=== PATIENT | male | born 1985 | race Caucasian/White ===

== ENCOUNTER 2021-08-24 16:24 | Emergency (ER) | payer OTHER, SELFPAY ==
[2021-08-24 16:26] VITALS: BP 146/96; PULSE 89; RESP 15; TEMP 36.2; O2SAT 99; BMI 38.0
[2021-08-24 16:43] VITALS: BP 151/105; PULSE 86; RESP 21; O2SAT 96
--- NOTE | 2021-08-24 17:12 | RAD_ITS ---
INDICATION: chest pain EXAMINATION/TECHNIQUE: X-RAY - XR Chest 2 Views COMPARISON: None. FINDINGS: The lungs are clear. The cardiomediastinal silhouette is unremarkable. No pleural effusion or pneumothorax. No acute osseous abnormalities. RAD/Chest PA and Lateral IMPRESSION: No acute radiographic abnormalities. Electronically Signed: Arcenio Carmichael MD at 18:23 EDT ,
[2021-08-24 17:24] LABS: Absolute Lymphocyte Count 1.31 X10^3/uL (0.83-4.51); Absolute Neutrophil Count 2.7 X10^3/uL (2.0-7.7); Basophil# 0.04 X10^3/uL; Basophil% 0.8 % (0-1); Eosinophil# 0.07 X10^3/uL; Eosinophils% 1.4 % (0-5); Hematocrit 43.1 % (40-54); Hemoglobin 15.1 g/dL (13.0-16.5); Lymphocyte # 1.31 X10^3/ul (0.83-4.51); Lymphocyte % 26.6 % (19-41); Mean Corpuscular Hgb 28.7 pg (27.0-32.0); Mean Corpuscular Volume 81.8 fL (80-94); Mean Platelet Vol. 10.2 fl (6.2-12.0); Monocyte# 0.75 X10^3/uL; Monocyte% 15.2 % (0-10); NRBC Flagged by Analyzer 0 % (0-5); Neutrophil # 2.67 X10^3/uL (2.7-7.7); Neutrophil % 54.2 % (47-70); Platelet Count 187 K/mm3 (150-450); RBC Distribution Width CV 12.4 % (11.6-14.6); RBC Distribution Width SD 37.1 fl (35.1-43.9); Red Blood Count 5.27 M/mm3 (4.6-6.2); White Blood Count 4.9 K/mm3 (4.4-11.0)
--- NOTE | 2021-08-24 17:25 | CM.ED ---
SW Note Referral Source: Case Find Referral Reason: NO PCP SW met with patient. He confirmed he has no PCP. SW provided him with [facility] Healthcare Provider list. SW remains available if needs arise. Plan: [facility] [address]
--- NOTE | 2021-08-24 17:29 | EKG12_ITS ---
Test Reason : EDEMA Blood Pressure : / mmHG Vent. Rate : 076 BPM Atrial Rate : 076 BPM P-R Int : 154 ms QRS Dur : 098 ms QT Int : 362 ms P-R-T Axes : 040 026 006 degrees QTc Int : 407 ms Normal sinus rhythm Normal ECG Confirmed by GRACIE STOVER, BASILIA ([id number]), make up editor KIRSTY ALEXANDRE ([id number]) on 08/30/2021 12:41:23 PM Referred By: ANGELLA Confirmed By:BASILIA BOWMAN MD
--- NOTE | 2021-08-24 17:33 | US_ITS ---
INDICATION: undefined -- SWELLING EXAMINATION: US Venous Duplex LE Bilat Complete TECHNIQUE: Street scale, pulse wave, and color flow Doppler imaging was performed of the lower extremity venous system. The bilateral greater saphenous, common femoral, femoral, and popliteal veins were interrogated. COMPARISON: None. FINDINGS: There is normal compression, augmentation, and signal throughout the visualized deep lower extremity veins. No mass. 2.6 cm Arrington''s cyst on the left. US/Venous Duplex Imag/Markus Extrem IMPRESSION: No sonographic evidence of deep venous thrombosis. 2.6 cm Arrington''s cyst on the left. Electronically Signed: Arcenio Carmichael MD at 18:39 EDT ,
[2021-08-24 17:54] LABS: Anion Gap 4 (5-15); BUN 13 mg/dL (7-18); BUN/Creat Ratio 12.4 RATIO (10-20); Calcium,Total 8.2 mg/dL (8.5-10.1); Chloride 105 mmol/L (98-107); Creatinine, Serum 1.05 mg/dL (0.70-1.30); EST Glomerular Filtration Rate 85 mL/min (>60); Est Glom Filt Rate - Afr Amer 103 mL/min (>60); Glucose 91 mg/dL (74-106); Potassium 4.1 mmol/L (3.5-5.1); Sodium Level 139 mmol/L (136-145); Thyroid Stim Hormone (TSH) 3.06 uIU/mL (0.358-3.74); Troponin-I HS 10 pg/mL (3.0-78.0)
[2021-08-24 18:09] LABS: BNP,B-Type NATRIURETIC PEPTIDE < 2.0 pg/mL (0-100)
[2021-08-24 18:36] VITALS: BP 156/100; PULSE 84; RESP 21; O2SAT 96
--- NOTE | 2021-08-24 18:36 | EDS_ITS ---
HPI <UGO Tran - Last Filed: 08/24/21 18:44> History of Present Illness Chief Complaint: Edema Narrative Narrative: 35-year-old male with no significant medical history presents to the emergency department with complaints of 4 days of generalized lower leg swelling, intermittent chest pain, increased shortness of breath. Patient has never seen a PCP, patient had his first appointment today however because he was 10 minutes late, he had to reschedule. He was going to bring up that his legs have been swelling, he is concerned that he has a blood clot, so the office told him to come to the emergency department. Patient denies any history of blood clot, recent travel. Patient recently did have COVID-19 in May 2021. Patient also states of intermittent chest pressure as well as some increase shortness of breath on exertion. Patient denies any fevers or chills PFSH <UGO Tran - Last Filed: 08/24/21 18:44> PFS Medical History no medical history Home Medications NK 08/24/21 [History Last Taken Unknown] Allergy/AdvReac Type Severity Reaction Status Date / Time No Known Allergies Allergy Verified 08/24/21 16:28 Surgical History no surgical history Social History Smoking Status: Never smoker ROS <UGO Tran - Last Filed: 08/24/21 18:44> ROS ED ROS Narrative Constitutional: Negative for fever, chills, weight loss, weakness Eyes: Negative for vision loss, vision change, double vision ENT: Negative for any sore throat, ear pain, congestion Cardiovascular: Negative for any chest pain, tightness, racing heartbeat. Positive palpitations Respiratory: Negative for any cough, sputum production, hemoptysis, shortness of breath on exertion, orthopnea. Positive for intermittent shortness of breath Gastrointestinal: Negative for any abdominal pain, nausea, vomiting, diarrhea, constipation, blood in stool, blood in vomit : Negative for any urinary frequency, incontinence, dysuria, retention, blood in urine Muscle skeletal: Negative for any muscle joint pain, stiffness, myalgias, arthralgias, neck pain, back pain. Positive for bilateral lower leg swelling Neurological: Negative for any headache, dizziness, syncope, numbness or tingling Skin: Negative for any rashes, lumps, itching, abrasions, lacerations Psychiatric: Negative for any depression, anxiety, stress, suicidal ideation, homicidal ideation Hematologic: Negative for any easy bruising, excessive bruising, easy bleeding Allergies: Negative for any eczema, hives, rash EXAM <UGO Tran - Last Filed: 08/24/21 18:44> Physical Exam Narrative Exam Narrative: Vital signs reviewed. HEET: Head normocephalic atraumatic, TMs clear bilaterally. Posterior pharynx is clear, moist mucous membranes. Nares clear bilaterally. Neck: Supple with no lymphadenopathy or tenderness. No signs of meningismus, negative jolt sign. Cardiac: Regular rate and rhythm no murmurs gallops or rubs, equal peripheral pulses bilaterally. Respiratory: Lungs clear to auscultation bilaterally. No chest tenderness. Abdomen: Soft, nontender, nondistended. No abdominal bruit or pulsatile masses. No hepatosplenomegaly Extremities: Patient does have some edema to his lower extremities specifically around his ankles. This is not pitting edema. Patient has +2 pedal pulse. Negative for any neurological focal deficit. Negative for any discoloration.. Active full range of motion of all extremities. Neuro: Cranial nerves II through XII intact, no focal neurological deficits. Skin: Clean dry and intact with no rash, purpura, petechiae, vesicles or pustules. Backslash flank: No CVA tenderness, no midline spinal tenderness, no deformity. Psych: Normal mood and affect. No SI, HI or acute psychosis. Const Vital Signs: 08/24/21 16:26 08/24/21 16:43 Temperature 97.1 F L Temperature Source Temporal Pulse Rate 89 86 Respiratory Rate 15 21 H Respiratory Effort Normal Non-Labored Respiratory Pattern Normal Blood Pressure 146/96 H 151/105 H Blood Pressure Mean 112 120 Pulse Ox 99 96 Oxygen Delivery Method Room Air Room Air Positive well nourished and well developed General Appearance ED: well developed <Dr. Nanda Talbot DO - Last Filed: 09/04/21 07:47> Physical Exam Const Vital Signs: 08/24/21 16:26 08/24/21 16:43 Temperature 97.1 F L Temperature Source Temporal Pulse Rate 89 86 Respiratory Rate 15 21 H Respiratory Effort Normal Non-Labored Respiratory Pattern Normal Blood Pressure 146/96 H 151/105 H Blood Pressure Mean 112 120 Pulse Ox 99 96 Oxygen Delivery Method Room Air Room Air [facility] <Robert Arcos FISH ICER-C - Last Filed: 08/24/21 18:44> [facility] Narrative Medical decision making narrative: Patient appears well, patient appears nontoxic, vital signs are stable. Patient presents to the emergency department with concerns of chest pressure, bilateral lower leg edema concern for DVT. Patient did receive a full cardiac work-up, patient CBC was unremarkable, chemistries were unremarkable, patient's troponin was negative with a negative BNP. Patient's thyroid was within normal limits at 3.06. He did receive bilateral venous duplex of the lower extremities, these were negative for any DVTs. Patient's chest x-ray read by the ER attending shows no acute process. At this time, I do not believe the patient is suffering from any cardiac or pulmonary disease. Patient does need to follow-up with his PCP, he will be given a referral here. Patient instructed take fiber as well as use compression stockings. At this time, patient is happy with the plan of care, he is instructed to return for any worsening symptoms. Patient stable for discharge Lab Data Labs: Laboratory Results - last 24 hr 08/24/21 08/24/21 08/24/21 17:10 17:10 17:10 WBC 4.9 RBC 5.27 Hgb 15.1 Hct 43.1 MCV 81.8 MCH 28.7 MCHC 35.0 RDW Std Deviation 37.1 RDW Coeff of Carolin 12.4 Plt Count 187 MPV 10.2 Immature Gran % (Auto) 1.800 H Neut % (Auto) 54.2 Lymph % (Auto) 26.6 Rosebud % (Auto) 15.2 H Eos % (Auto) 1.4 Baso % (Auto) 0.8 Absolute Neuts (auto) 2.7 Absolute Lymphs (auto) 1.31 Nucleated RBC % 0 Sodium 139 Potassium 4.1 Chloride 105 Carbon Dioxide 30.0 Anion Gap 4 L BUN 13 Creatinine 1.05 Estim Creat Clear Calc 95.90 Est GFR (MDRD) Af Amer 103 Est GFR (MDRD) Non-Af 85 BUN/Creatinine Ratio 12.4 Glucose 91 Calcium 8.2 L Troponin I High Sens 10 B-Natriuretic Peptide < 2.0 TSH 3.06 Radiography Chest X-Ray - ED: 1 View Diagnostic Testing: Clinical Impression(s) from Imaging Studies Chest X-Ray 08/24/21 17:12 IMPRESSION: No acute radiographic abnormalities. Electronically Signed: Arcenio Carmichael MD at 18:23 EDT , Venous Duplex 08/24/21 17:33 IMPRESSION: No sonographic evidence of deep venous thrombosis. 2.6 cm Arrington''s cyst on the left. Electronically Signed: Arcenio Carmichael MD at 18:39 EDT , EKG Normal sinus rhythm: Interpretation: Sinus Rhythm Comments: Normal sinus rhythm, rate of 76 bpm, HI interval 154 ms, QRS duration 98 ms, no acute ST elevation, no acute infarct noted. <Dr. Nanda Talbot, DO - Last Filed: 09/04/21 07:47> [facility] Narrative Medical decision making narrative: I have personally performed a face to face assessment of the patient and have reviewed the JATINDER Note. I performed a substantive portion of the visit including all aspects of the following. My valente findings include: History is patient is a 36-year-old male with no known medical history presenting with chest pressure and leg swelling. Notes leg swelling is worse when he is standing up towards the end of the day. Is better in the morning when he is not sleeping in his bed. Does report a history of acid reflux. Had called new primary care doctor to see him today however he was late to the appointment and could not be seen. He came to the ER for further evaluation of the symptoms. Exam is patient well-appearing no acute distress. Normocephalic atraumatic. Neck supple. No JVD. Mucosal membranes. Heart regular rate and rhythm. No murmur. Lungs are clear to auscultation bilaterally. Abdomen soft and nontender. No significant edema appreciated. Equal pedal pulses. No palpable cords. No calf tenderness. No focal neurologic deficits. Skin pink with normal turgor. Medical Decision Making patient evaluated for leg swelling as well as chest pressure. He appears nontoxic no acute distress. He is low risk for ACS and is high since he troponin is 10. Given has been going on for a month I do not think this is ACS. EKG to read by myself shows normal sinus rhythm. Lab work unremarkable. Patient not have any risk factors for DVT or PE and he is PE RC negative. Venous duplex of the ultrasound was obtained and this is negative. I do expect a PE I do not think a D-dimer or CTA is indicated at this time. Patient counseled that the exact cause of symptoms not clear however I do not think there is any emergent process going on. He is counseled extensively on use of compression stockings and that this could just be dependent edema. Encouraged to follow-up with her primary care doctor. Is given further outpatient referral. Patient verbalizes agreement understanding this plan. Other additions or changes: [None] Lab Data Attestation: I reviewed the patient's lab results. Labs: Laboratory Results - last 24 hr 08/24/21 08/24/21 08/24/21 17:10 17:10 17:10 WBC 4.9 RBC 5.27 Hgb 15.1 Hct 43.1 MCV 81.8 MCH 28.7 MCHC 35.0 RDW Std Deviation 37.1 RDW Coeff of Carolin 12.4 Plt Count 187 MPV 10.2 Immature Gran % (Auto) 1.800 H Neut % (Auto) 54.2 Lymph % (Auto) 26.6 Rosebud % (Auto) 15.2 H Eos % (Auto) 1.4 Baso % (Auto) 0.8 Absolute Neuts (auto) 2.7 Absolute Lymphs (auto) 1.31 Nucleated RBC % 0 Sodium 139 Potassium 4.1 Chloride 105 Carbon Dioxide 30.0 Anion Gap 4 L BUN 13 Creatinine 1.05 Estim Creat Clear Calc 95.90 Est GFR (MDRD) Af Amer 103 Est GFR (MDRD) Non-Af 85 BUN/Creatinine Ratio 12.4 Glucose 91 Calcium 8.2 L Troponin I High Sens 10 B-Natriuretic Peptide < 2.0 TSH 3.06 Radiography Chest X-Ray - ED: 2 View, Read by ED Physician, Read by Radiologist and Normal Diagnostic Testing: Clinical Impression(s) from Imaging Studies Chest X-Ray 08/24/21 17:12 IMPRESSION: No acute radiographic abnormalities. Electronically Signed: Arcenio Carmichael MD at 18:23 EDT , Venous Duplex 08/24/21 17:33 IMPRESSION: No sonographic evidence of deep venous thrombosis. 2.6 cm Arrington''s cyst on the left. Electronically Signed: Arcenio Carmichael MD at 18:39 EDT , Rhythm Strip Rhythm Strip: Sinus Rhythm Rate: 89 Ectopy: None Discharge Plan Triage Chief Complaint: Edema ED Midlevel Provider: Robert Arcos ED Provider: Nanda Talbot Dx/Rx/DC Orders Clinical Impression: Dependent edema, Chest pressure Instructions: ED Peripheral Edema, Bilateral Prescriptions: No Action NK RF: 0 Primary Care Provider: Care Physician,No Primary Referrals: Royce Grubbs DO [STAFF PHYSICIAN] - 3-5 Days if not improving Care Physician,No Primary [Primary Care Provider] - Activity Restrictions/Additional Instructions: Please use Benefiber, compression stockings. Please follow-up with PCP Print Language: [place] Disposition Disposition: Home, Self Care Discharge Date/Time: 08/24/21 23:59
[2021-08-24 18:55] VITALS: BP 137/76; PULSE 82; RESP 16; O2SAT 98
== END 2021-08-24 18:55 | disposition home or self-care (01) ==
PROVIDERS: Nurse Practitioner; Emergency Provider Emergency Medicine; Visit Provider Emergency Medicine
DX: R60.9 Edema, unspecified (principal); Z86.16 Personal history of COVID-19
CPT/HCPCS: 71046; 80048; 83880; 84443; 84484; 85025; 93005; 93970; 99284; A4216

== ENCOUNTER 2021-10-21 16:38 | Emergency (ER) | payer OTHER, SELFPAY ==
[2021-10-21 16:39] VITALS: BP 148/98; PULSE 106; RESP 16; TEMP 36.7; O2SAT 99; BMI 36.5
--- NOTE | 2021-10-21 16:58 | EDS_ITS ---
HPI History of Present Illness Chief Complaint: Rash Narrative Narrative: Patient presents with left forehead rash for about a week. It started out as just pain without a rash and then few days later he noticed vesicles. He did have chickenpox as a child. The rash does not involve the eye, there is no vision changes no mucosal involvement PFSH PFSH Medical History no medical history Home Medications acyclovir 800 mg PO 5X/DAY #35 tab 10/21/21 [Rx Last Taken Unknown] Allergy/AdvReac Type Severity Reaction Status Date / Time No Known Allergies Allergy Verified 10/21/21 16:42 Social History Smoking Status: Never smoker ROS ROS ED ROS Narrative Past medical history: Reviewed Medications: Reviewed Social history: Noncontributory Review of systems: All systems negative except as indicated General: No fever Eyes: No visual changes ENT: Forehead rashes in HPI Neck: No neck pain Cardiovascular: No chest pain Respiratory: No shortness of breath or cough Musculoskeletal: Denies myalgias no difficulty with ambulation Skin: As above Neurological: No memory loss, confusion or any focal weakness Hematologic: No easy bleeding or easy bruising EXAM Physical Exam Narrative Exam Narrative: Physical exam General: Well nourished, Well developed, No Acute Distress Head: Normocephalic, Atraumatic Eyes: Conjunctiva not pale. No conjunctivitis. ENT: Looks like a dermatomal distribution rash in the healing stages, no current active vesicles are present. This is consistent with herpes zoster. Neck: Supple, Nontender, No lymphadenopathy Cardiovascular: Normal distal pulses Skin: As above Neurological: Alert, Normal Strength, Normal Sensation Psychological: Normal affect Const Vital Signs: 10/21/21 16:39 Temperature 98.0 F Temperature Source Temporal Pulse Rate 106 H Respiratory Rate 16 Blood Pressure 148/98 H Blood Pressure Mean 114 Pulse Ox 99 Oxygen Delivery Method Room Air MDM MDM MDM Narrative Medical decision making narrative: Patient be treated with acyclovir, otherwise he is on [place] after a dental extraction I will discharge him in stable condition with reassurance and education Discharge Plan Triage Chief Complaint: Rash ED Provider: Robert Alvarez Dx/Rx/DC Orders Clinical Impression: Herpes zoster, Face pain Instructions: Shingles (Herpes Zoster) Prescriptions: New acyclovir 800 mg tablet 800 mg PO 5X/DAY Qty: 35 RF: 0 Primary Care Provider: Care Physician,No Primary Referrals: Care Physician,No Primary [Primary Care Provider] - Disposition Disposition: Home, Self Care
[2021-10-21] MEDS: Acyclovir 800 MG Tablet PO (17:15)
== END 2021-10-21 17:19 | disposition home or self-care (01) ==
LOC: ED 17:05
PROVIDERS: Emergency Provider Emergency Medicine; Visit Provider Emergency Medicine
DX: B02.9 Zoster without complications (principal); R51.9 Headache, unspecified
CPT/HCPCS: 99283